=== PATIENT | male | born 1950 | race Caucasian/White ===

== ENCOUNTER 2019-10-30 20:02 | Inpatient (IN) ==
[2019-10-30] MEDS ORDERED: Aspirin 325 MG TABLET PO ONE (20:07)
[2019-10-30] MEDS ORDERED: Ipratropium/Albuterol Neb 3 ML IH ONE (20:07)
[2019-10-30] MEDS ORDERED: 0.9 % Sodium Chloride 250 ML IVC ONE (20:08)
[2019-10-30 20:56] LABS: Basophils # 0.1 K/mcL (0.0-0.2); Basophils % 0.7 %; Eosinophils # 0.5 K/mcL (0.0-0.6); Eosinophils % 5.4 %; Hematocrit 39.8 % (37.5-50.1); Hemoglobin 14.5 g/dL (12.9-16.9); Immature Granulocytes % 0.3 % (0-4); Lymphocytes # 0.9 K/mcL (0.6-4.6); Mean Corpuscular HGB Conc 36.4 g/dL (31.6-35.5); Mean Corpuscular Hemoglobin 30.7 pg (28.0-33.3); Mean Corpuscular Volume 84.3 fL (83.0-100.0); Mean Platelet Volume 10.6 fL (9.4-12.4); Monocytes # 0.7 K/mcL (0.0-1.3); Monocytes % 8.1 %; Neutrophils # 6.5 K/mcL (1.6-8.9); Platelet Count 146 K/mcL (140-400); Red Blood Count 4.72 M/mcL (4.19-5.50); Red Cell Distribution Width 13.3 % (11.5-14.5); Segmented Neutrophils % 75.5 %; White Blood Count 8.7 K/mcL (4.3-11.1)
[2019-10-30 21:21] LABS: Alanine Aminotransferase 17 Units/L (7-52); Albumin 3.8 g/dL (3.5-5.7); Albumin/Globulin Ratio 1.2 (1.1-2.2); Alkaline Phosphatase 92 Units/L (34-104); Aspartate Amino Transferase 25 Units/L (13-39); BUN/Creatinine Ratio 19 (6-26); Bilirubin,Total 1.9 mg/dL (0.3-1.0); Blood Urea Nitrogen 10 mg/dL (8-23); Carbon Dioxide 20 mEq/L (23-29); Chloride 97 mEq/L (98-107); Globulin 3.3 g/dL (2.4-3.5); Glucose 118 mg/dL (70-105); Osmolality,Calculated 262 (280-300); Sodium 126 mEq/L (136-145); Total Protein 7.1 g/dL (6.4-8.9); Troponin I < 0.03 ng/mL (< 0.04); eGFR For African Americans > 60 (> 60); eGFR For Non-African Americans > 60 (> 60)
[2019-10-31] MEDS ORDERED: *HR* HYDROcodone/Acet 5/325 mg TABLET PO ONE (00:37)
[2019-10-31] MEDS ORDERED: Dextrose Gel 15 GM/37.5 ML TUBE PO PRN ×2 (02:57)
[2019-10-31] MEDS ORDERED: *HR* Dextrose 50 % in Water (Syg) 50 ML SYRINGE IVP PRN (02:57)
[2019-10-31] MEDS ORDERED: D5% in Water 1,000 ML IVC PRN (02:57)
[2019-10-31] MEDS ORDERED: 0.9 % Sodium Chloride 1,000 ML IVC SCH (04:00)
[2019-10-31] MEDS ORDERED: Ipratropium/Albuterol Neb 3 ML IH SCH ×2 (05:00→08:00)
[2019-10-31] MEDS ORDERED: MethylPREDNISolone 40 MG/ML VIAL IVP SCH ×2 (06:00→07:30)
[2019-10-31] MEDS ORDERED: *HR* Heparin 5,000 UNIT/ML VIAL SQ SCH (06:00)
[2019-10-31 07:51] LABS: Basophils # 0.1 K/mcL (0.0-0.2); Basophils % 0.7 %; Eosinophils # 0.5 K/mcL (0.0-0.6); Eosinophils % 6.5 %; Hematocrit 37.4 % (37.5-50.1); Hemoglobin 13.5 g/dL (12.9-16.9); Immature Granulocytes % 0.4 % (0-4); Lymphocytes % 13.7 %; Mean Corpuscular HGB Conc 36.1 g/dL (31.6-35.5); Mean Corpuscular Volume 85.8 fL (83.0-100.0); Monocytes # 0.6 K/mcL (0.0-1.3); Monocytes % 7.9 %; Neutrophils # 4.9 K/mcL (1.6-8.9); Platelet Count 129 K/mcL (140-400); Red Blood Count 4.36 M/mcL (4.19-5.50); Red Cell Distribution Width 13.6 % (11.5-14.5); Segmented Neutrophils % 70.8 %; White Blood Count 6.9 K/mcL (4.3-11.1)
[2019-10-31 08:11] LABS: Alanine Aminotransferase 14 Units/L (7-52); Albumin 3.6 g/dL (3.5-5.7); Albumin/Globulin Ratio 1.2 (1.1-2.2); Alkaline Phosphatase 91 Units/L (34-104); Aspartate Amino Transferase 21 Units/L (13-39); BUN/Creatinine Ratio 17 (6-26); Bilirubin,Total 1.6 mg/dL (0.3-1.0); Blood Urea Nitrogen 11 mg/dL (8-23); Calcium 8.8 mg/dL (8.6-10.3); Carbon Dioxide 25 mEq/L (23-29); Chloride 96 mEq/L (98-107); Globulin 3.1 g/dL (2.4-3.5); Glucose 113 mg/dL (70-105); Osmolality,Calculated 266 (280-300); Potassium 3.9 mEq/L (3.5-5.1); Sodium 128 mEq/L (136-145); Total Protein 6.7 g/dL (6.4-8.9); eGFR For African Americans > 60 (> 60); eGFR For Non-African Americans > 60 (> 60)
[2019-10-31] MEDS ORDERED: Azithromycin 500 MG in 0.9 % Sodium Chloride 250 ML IVPB SCH (09:00)
[2019-10-31] MEDS ORDERED: Ondansetron 4 MG/2 ML VIAL IVP PRN (09:26)
[2019-10-31] MEDS: Insulin LISPRO 300 UNITS/3 ML VIAL SQ SCH ×3 (09:57→18:07)
[2019-10-31 12:07] LABS: Total Protein,Pleural Fluid 4.7 g/dL
[2019-10-31 12:43] LABS: INR 1.3
[2019-11-01 04:10] LABS: Basophils % 0.5 %; Eosinophils # 0.2 K/mcL (0.0-0.6); Eosinophils % 2.6 %; Hematocrit 37.1 % (37.5-50.1); Hemoglobin 13.3 g/dL (12.9-16.9); Immature Granulocytes % 0.4 % (0-4); Lymphocytes # 0.6 K/mcL (0.6-4.6); Lymphocytes % 8.6 %; Mean Corpuscular HGB Conc 35.8 g/dL (31.6-35.5); Mean Corpuscular Hemoglobin 30.9 pg (28.0-33.3); Mean Corpuscular Volume 86.3 fL (83.0-100.0); Monocytes # 0.7 K/mcL (0.0-1.3); Monocytes % 9.9 %; Neutrophils # 5.7 K/mcL (1.6-8.9); Platelet Count 127 K/mcL (140-400); Red Cell Distribution Width 13.6 % (11.5-14.5); White Blood Count 7.3 K/mcL (4.3-11.1)
[2019-11-01 04:27] LABS: BUN/Creatinine Ratio 18 (6-26); Blood Urea Nitrogen 12 mg/dL (8-23); Calcium 8.4 mg/dL (8.6-10.3); Carbon Dioxide 25 mEq/L (23-29); Chloride 103 mEq/L (98-107); Glucose 104 mg/dL (70-105); Osmolality,Calculated 274 (280-300); Potassium 4.1 mEq/L (3.5-5.1); Sodium 132 mEq/L (136-145); eGFR For African Americans > 60 (> 60); eGFR For Non-African Americans > 60 (> 60)
[2019-11-01] MEDS: Insulin LISPRO 300 UNITS/3 ML VIAL SQ SCH ×3 (08:39→16:58)
[2019-11-01 10:06] LABS: Lactate Dehydrogenase 186 Units/L (140-271)
[2019-11-01] MEDS ORDERED: Saline Nasal Spray 44 ML BOTTLE NS PRN (12:54)
[2019-11-01] MEDS: Ipratropium/Albuterol Neb 3 ML IH PRN (20:29)
[2019-11-01] MEDS ORDERED: *HR* HYDROcodone/Acet 5/325 mg TABLET PO ONE (22:21)
[2019-11-02 04:57] LABS: INR 1.3; Prothrombin Time 15.2 Seconds (9.4-12.1)
[2019-11-02] MEDS: Insulin LISPRO 300 UNITS/3 ML VIAL SQ SCH ×3 (08:03→16:54)
[2019-11-02] MEDS ORDERED: Lidocaine -MPF 4% 5 ML AMPUL ONE (08:25)
[2019-11-02] MEDS ORDERED: Ondansetron 4 MG/2 ML VIAL ONE (08:25)
[2019-11-02] MEDS ORDERED: Lidocaine -MPF 2% 2 ML VIAL ONE (08:25)
[2019-11-02] MEDS ORDERED: *HR* Propofol 200 MG/20 ML VIAL IVP ONE (08:26)
[2019-11-02] MEDS: Ipratropium/Albuterol Neb 3 ML IH PRN (08:42)
[2019-11-02] MEDS ORDERED: *HR* PHENYLEPHRINE 1,000 MCG/10 ML SYRINGE IVP ONE (08:52)
[2019-11-02] MEDS ORDERED: *HR* Succinylcholine 200 MG/10 ML VIAL IVP ONE (08:53)
[2019-11-02 10:48] LABS: Hematocrit 37.4 % (37.5-50.1); Hemoglobin 13.5 g/dL (12.9-16.9); Mean Corpuscular HGB Conc 36.1 g/dL (31.6-35.5); Mean Corpuscular Hemoglobin 31.5 pg (28.0-33.3); Mean Corpuscular Volume 87.4 fL (83.0-100.0); Mean Platelet Volume 10.6 fL (9.4-12.4); Platelet Count 142 K/mcL (140-400); Red Blood Count 4.28 M/mcL (4.19-5.50); Red Cell Distribution Width 13.9 % (11.5-14.5); White Blood Count 6.2 K/mcL (4.3-11.1)
[2019-11-02 11:27] LABS: Albumin 3.3 g/dL (3.5-5.7); Albumin/Globulin Ratio 1.2 (1.1-2.2); Globulin 2.8 g/dL (2.4-3.5); Total Protein 6.1 g/dL (6.4-8.9)
[2019-11-02] MEDS ORDERED: *HR* HYDROcodone/Acet 5/325 mg TABLET PO ONE (18:49)
[2019-11-02 18:54] LABS: Appearance of Body Fluid Hazy (Clear); Volume of Body Fluid 10 mL
[2019-11-02 19:14] LABS: Appearance of Body Fluid Hazy (Clear)
[2019-11-02 19:15] LABS: Volume of Body Fluid 12 mL
[2019-11-02 19:19] LABS: Appearance of Body Fluid Cloudy (Clear); Volume of Body Fluid 15 mL
[2019-11-03] MEDS: Ipratropium/Albuterol Neb 3 ML IH PRN ×2 (04:09→14:22)
[2019-11-03 08:08] VITALS: BP 127/74
[2019-11-03] MEDS: Insulin LISPRO 300 UNITS/3 ML VIAL SQ SCH ×2 (08:59→11:21)
[2019-11-03] MEDS ORDERED: *HR* HYDROcodone/Acet 5/325 mg TABLET PO PRN (10:32)
== END 2019-11-03 16:50 | disposition home or self-care (01) | DRG 193 ==
LOC: 3ANU 20:02 → EMEROOARM 20:02 → 3ANU 10-31 01:00 → SUATTDRO 10-31 04:31
PROVIDERS: ADMIT Internal Medicine; ATTEND Internal Medicine
PROC: ENDOBRF (2019-11-02 17:30)

== ENCOUNTER 2019-11-10 18:00 | Inpatient (IN) ==
[2019-11-10 18:53] LABS: INR 1.3; Prothrombin Time 14.2 Seconds (9.4-12.1)
[2019-11-10 18:56] LABS: Basophils # 0.1 K/mcL (0.0-0.2); Basophils % 0.6 %; Eosinophils # 0.5 K/mcL (0.0-0.6); Eosinophils % 5.3 %; Hemoglobin 13.7 g/dL (12.9-16.9); Immature Granulocytes % 0.5 % (0-4); Lymphocytes # 1.1 K/mcL (0.6-4.6); Lymphocytes % 10.7 %; Mean Corpuscular HGB Conc 36.1 g/dL (31.6-35.5); Mean Corpuscular Hemoglobin 31.3 pg (28.0-33.3); Mean Corpuscular Volume 86.8 fL (83.0-100.0); Mean Platelet Volume 10.7 fL (9.4-12.4); Monocytes % 9.8 %; Neutrophils # 7.2 K/mcL (1.6-8.9); Platelet Count 167 K/mcL (140-400); Red Blood Count 4.38 M/mcL (4.19-5.50); Red Cell Distribution Width 14.4 % (11.5-14.5); Segmented Neutrophils % 73.1 %; White Blood Count 9.9 K/mcL (4.3-11.1)
[2019-11-10 19:11] LABS: Alanine Aminotransferase 20 Units/L (7-52); Albumin 3.9 g/dL (3.5-5.7); Albumin/Globulin Ratio 1.1 (1.1-2.2); Alkaline Phosphatase 83 Units/L (34-104); Aspartate Amino Transferase 25 Units/L (13-39); BUN/Creatinine Ratio 20 (6-26); Bilirubin,Direct 0.3 mg/dL (0.0-0.2); Bilirubin,Indirect 1.2 mg/dL (0.0-1.0); Bilirubin,Total 1.5 mg/dL (0.3-1.0); Blood Urea Nitrogen 13 mg/dL (8-23); Calcium 9.7 mg/dL (8.6-10.3); Carbon Dioxide 25 mEq/L (23-29); Chloride 98 mEq/L (98-107); Globulin 3.4 g/dL (2.4-3.5); Glucose 120 mg/dL (70-105); Osmolality,Calculated 265 (280-300); Potassium 4.3 mEq/L (3.5-5.1); Sodium 127 mEq/L (136-145); Total Protein 7.3 g/dL (6.4-8.9); Troponin I < 0.03 ng/mL (< 0.04); eGFR For African Americans > 60 (> 60); eGFR For Non-African Americans > 60 (> 60)
[2019-11-10] MEDS ORDERED: Piperacillin/Tazobactam 3.375 GM in 0.9 % Sodium Chloride Mini Bag 100 ML IVPB ONE (19:29)
[2019-11-10] MEDS ORDERED: Isovue-370 500 ML BOTTLE IVP ONE (19:42)
[2019-11-10] MEDS ORDERED: Naloxone 0.4 MG/ML INJ IVP PRN (21:35)
[2019-11-10] MEDS ORDERED: *HR* Dextrose 50 % in Water (Syg) 50 ML SYRINGE IVP PRN (21:41)
[2019-11-10] MEDS ORDERED: D5% in Water 1,000 ML IVC PRN (21:41)
[2019-11-10] MEDS ORDERED: Dextrose Gel 15 GM/37.5 ML TUBE PO PRN ×2 (21:41)
[2019-11-11] MEDS ORDERED: Ondansetron 4 MG/2 ML VIAL IVP ONE (00:46)
[2019-11-11 03:26] LABS: Basophils # 0.1 K/mcL (0.0-0.2); Basophils % 0.5 %; Eosinophils # 0.3 K/mcL (0.0-0.6); Eosinophils % 3.6 %; Hematocrit 35.8 % (37.5-50.1); Hemoglobin 12.7 g/dL (12.9-16.9); INR 1.3; Immature Granulocytes % 0.5 % (0-4); Lymphocytes % 10.4 %; Mean Corpuscular HGB Conc 35.5 g/dL (31.6-35.5); Mean Corpuscular Hemoglobin 31.7 pg (28.0-33.3); Mean Corpuscular Volume 89.3 fL (83.0-100.0); Mean Platelet Volume 10.8 fL (9.4-12.4); Monocytes # 0.8 K/mcL (0.0-1.3); Monocytes % 8.1 %; Neutrophils # 7.3 K/mcL (1.6-8.9); Platelet Count 142 K/mcL (140-400); Red Blood Count 4.01 M/mcL (4.19-5.50); Red Cell Distribution Width 14.3 % (11.5-14.5); Segmented Neutrophils % 76.9 %; White Blood Count 9.5 K/mcL (4.3-11.1)
[2019-11-11 03:29] LABS: Activated Partial Thrombo Time 29.2 Seconds (26.0-36.0)
[2019-11-11 03:42] LABS: Alanine Aminotransferase 19 Units/L (7-52); Albumin 3.6 g/dL (3.5-5.7); Albumin/Globulin Ratio 1.2 (1.1-2.2); Alkaline Phosphatase 75 Units/L (34-104); Aspartate Amino Transferase 24 Units/L (13-39); BUN/Creatinine Ratio 21 (6-26); Blood Urea Nitrogen 12 mg/dL (8-23); Calcium 9.1 mg/dL (8.6-10.3); Carbon Dioxide 24 mEq/L (23-29); Chloride 97 mEq/L (98-107); Glucose 128 mg/dL (70-105); Osmolality,Calculated 271 (280-300); Potassium 4.1 mEq/L (3.5-5.1); Sodium 130 mEq/L (136-145); Total Protein 6.6 g/dL (6.4-8.9); eGFR For African Americans > 60 (> 60); eGFR For Non-African Americans > 60 (> 60)
[2019-11-11] MEDS: Insulin LISPRO 300 UNITS/3 ML VIAL SQ SCH ×5 (03:48→23:27)
[2019-11-11] MEDS ORDERED: Ipratropium/Albuterol Neb 3 ML IH PRN ×2 (06:18→21:24)
[2019-11-11] MEDS: Ondansetron 4 MG/2 ML VIAL IVP PRN ×2 (09:28→15:57)
[2019-11-11] MEDS ORDERED: Ondansetron 4 MG/2 ML VIAL IVP SCH (12:00)
[2019-11-11] MEDS ORDERED: *HR* Promethazine 25 MG/ML VIAL IVP PRN ×2 (13:05→21:24)
[2019-11-11 17:06] LABS: ABG Base Excess 1 mEq/L (-2 to 3); ABG HCO3 27 mEq/L (21-27); ABG Oxygen Saturation 96 % (95-98); ABG PCO2 49 mmHg (35-45); ABG PH 7.36 pH Units (7.32-7.45); ABG PO2 87 mmHg (85-104); ABG TCO2 29 mEq/L (20-26)
[2019-11-11] MEDS ORDERED: Morphine Sulfate Oral CONC 10 MG/0.5 ML ORAL.SYG SL PRN (17:06)
[2019-11-11] MEDS ORDERED: D5% in Water 1,000 ML IVC PRN (21:24)
[2019-11-11] MEDS ORDERED: Naloxone 0.4 MG/ML INJ IVP PRN (21:24)
[2019-11-11] MEDS ORDERED: Ondansetron 4 MG/2 ML VIAL IVP PRN (21:24)
[2019-11-11] MEDS ORDERED: Dextrose Gel 15 GM/37.5 ML TUBE PO PRN ×2 (21:24)
[2019-11-11] MEDS ORDERED: *HR* Dextrose 50 % in Water (Syg) 50 ML SYRINGE IVP PRN (21:24)
[2019-11-12] MEDS: Morphine Sulfate Oral CONC 10 MG/0.5 ML ORAL.SYG SL PRN ×3 (04:07→14:32)
[2019-11-12 04:59] LABS: Mean Corpuscular HGB Conc 34.3 g/dL (31.6-35.5); Mean Corpuscular Hemoglobin 31.1 pg (28.0-33.3); Mean Corpuscular Volume 90.7 fL (83.0-100.0); Mean Platelet Volume 11.1 fL (9.4-12.4); Platelet Count 117 K/mcL (140-400); Red Blood Count 3.86 M/mcL (4.19-5.50); Red Cell Distribution Width 14.8 % (11.5-14.5); White Blood Count 9.5 K/mcL (4.3-11.1)
[2019-11-12 05:20] LABS: BUN/Creatinine Ratio 27 (6-26); Blood Urea Nitrogen 19 mg/dL (8-23); Calcium 9.5 mg/dL (8.6-10.3); Carbon Dioxide 29 mEq/L (23-29); Chloride 97 mEq/L (98-107); Glucose 104 mg/dL (70-105); Magnesium 1.6 mg/dL (1.6-2.6); Osmolality,Calculated 275 (280-300); Potassium 4.2 mEq/L (3.5-5.1); Sodium 131 mEq/L (136-145); eGFR For African Americans > 60 (> 60); eGFR For Non-African Americans > 60 (> 60)
[2019-11-12] MEDS: Insulin LISPRO 300 UNITS/3 ML VIAL SQ SCH ×3 (05:52→17:44)
[2019-11-12] MEDS ORDERED: *HR* Propofol 200 MG/20 ML VIAL IVP ONE (13:25)
[2019-11-12] MEDS ORDERED: *HR* Midazolam HCl 2 MG/2 ML VIAL ONE (13:25)
[2019-11-12] MEDS ORDERED: Lidocaine -MPF 2% 2 ML VIAL ONE (13:26)
[2019-11-12] MEDS ORDERED: Ondansetron 4 MG/2 ML VIAL ONE (13:26)
[2019-11-12] MEDS ORDERED: *HR* Rocuronium Bromide 50 MG/5 ML VIAL ONE (13:27)
[2019-11-12] MEDS ORDERED: *HR* FentaNYL (PF) 100 MCG/2 ML VIAL ONE (13:29)
[2019-11-12] MEDS ORDERED: *HR* Succinylcholine 200 MG/10 ML VIAL IVP ONE (13:30)
[2019-11-12] MEDS ORDERED: Lidocaine HCL 4 ML Topical Solution (Laryng-O-Jet Kit Sterile Pak) TP ONE (13:39)
[2019-11-12] MEDS ORDERED: *HR* Etomidate 40 MG/20 ML VIAL IVP ONE (14:22)
[2019-11-12] MEDS ORDERED: EPHEDrine 50 MG/ML VIAL ONE (14:26)
[2019-11-12] MEDS ORDERED: *HR* Vasopressin 20 UNIT/ML VIAL ONE (14:35)
[2019-11-12] MEDS ORDERED: Albumin Human 5% 0 GM/0 ML VIAL ONE (14:44)
[2019-11-12] MEDS ORDERED: CeFAZolin Syr 2,000MG/20 ML 2,000 MG/20 ML SYRINGE IVPB ONE (15:06)
[2019-11-12] MEDS ORDERED: *HR* Phenylephrine 10 MG/ML VIAL ONE (15:22)
[2019-11-12] MEDS ORDERED: Dextrose Gel 15 GM/37.5 ML TUBE PO PRN ×2 (16:33)
[2019-11-12] MEDS ORDERED: *HR* Dextrose 50 % in Water (Syg) 50 ML SYRINGE IVP PRN (16:33)
[2019-11-12] MEDS ORDERED: Ipratropium/Albuterol Neb 3 ML IH PRN (16:33)
[2019-11-12] MEDS ORDERED: Ondansetron 4 MG/2 ML VIAL IVP PRN (16:33)
[2019-11-12] MEDS ORDERED: *HR* Promethazine 25 MG/ML VIAL IVP PRN (16:33)
[2019-11-12] MEDS ORDERED: D5% in Water 1,000 ML IVC PRN (16:33)
[2019-11-12] MEDS ORDERED: Naloxone 0.4 MG/ML INJ IVP PRN (16:33)
[2019-11-12] MEDS: *HR* HYDROcodone/Acet 5/325 mg TABLET PO PRN (17:38)
[2019-11-12] MEDS: Albuterol 2.5 MG/3 ML NEBULIZER IH SCH ×2 (20:14→23:15)
[2019-11-12] MEDS: Gabapentin 300 MG CAPSULE PO SCH (20:22)
[2019-11-13] MEDS: Insulin LISPRO 300 UNITS/3 ML VIAL SQ SCH ×4 (00:06→16:49)
[2019-11-13] MEDS: *HR* HYDROcodone/Acet 5/325 mg TABLET PO PRN ×5 (01:15→21:31)
[2019-11-13] MEDS: Albuterol 2.5 MG/3 ML NEBULIZER IH SCH ×6 (03:19→23:51)
[2019-11-13 05:04] LABS: Eosinophils % 0.1 %; Red Cell Distribution Width 14.4 % (11.5-14.5)
[2019-11-13 05:06] LABS: Basophils % 0.1 %; Hemoglobin 10.9 g/dL (12.9-16.9); Immature Granulocytes % 0.3 % (0-4); Immature Platelets 3.9 % (1.1-6.1); Lymphocytes # 0.5 K/mcL (0.6-4.6); Lymphocytes % 6.2 %; Mean Corpuscular HGB Conc 35.2 g/dL (31.6-35.5); Mean Corpuscular Hemoglobin 31.5 pg (28.0-33.3); Mean Corpuscular Volume 89.6 fL (83.0-100.0); Mean Platelet Volume 10.6 fL (9.4-12.4); Monocytes # 0.5 K/mcL (0.0-1.3); Neutrophils # 6.4 K/mcL (1.6-8.9); Red Blood Count 3.46 M/mcL (4.19-5.50); Segmented Neutrophils % 86.3 %; White Blood Count 7.4 K/mcL (4.3-11.1)
[2019-11-13 05:10] LABS: VBG Ionized Calcium 1.16 mmol/L (1.15-1.35)
[2019-11-13 05:20] LABS: BUN/Creatinine Ratio 27 (6-26); Blood Urea Nitrogen 17 mg/dL (8-23); Calcium 8.7 mg/dL (8.6-10.3); Carbon Dioxide 25 mEq/L (23-29); Chloride 99 mEq/L (98-107); Glucose 112 mg/dL (70-105); Magnesium 1.5 mg/dL (1.6-2.6); Osmolality,Calculated 276 (280-300); Phosphorous 4.3 mg/dL (2.7-4.5); Potassium 4.5 mEq/L (3.5-5.1); Sodium 132 mEq/L (136-145); eGFR For African Americans > 60 (> 60); eGFR For Non-African Americans > 60 (> 60)
[2019-11-13 06:18] LABS: Platelet Count 87 K/mcL (140-400); Platelet Estimate Slight Decrease (Normal)
[2019-11-13] MEDS: Gabapentin 300 MG CAPSULE PO SCH ×3 (07:57→19:51)
[2019-11-13] MEDS ORDERED: Isovue-370 500 ML BOTTLE IVP ONE (08:32)
[2019-11-13] MEDS ORDERED: *HR* Dextrose 50 % in Water (Syg) 50 ML SYRINGE IVP PRN (10:26)
[2019-11-13] MEDS ORDERED: Naloxone 0.4 MG/ML INJ IVP PRN (10:26)
[2019-11-13] MEDS ORDERED: *HR* Promethazine 25 MG/ML VIAL IVP PRN (10:26)
[2019-11-13] MEDS ORDERED: Ipratropium/Albuterol Neb 3 ML IH PRN (10:26)
[2019-11-13] MEDS ORDERED: Dextrose Gel 15 GM/37.5 ML TUBE PO PRN ×2 (10:26)
[2019-11-13] MEDS ORDERED: D5% in Water 1,000 ML IVC PRN (10:26)
[2019-11-13] MEDS: Ondansetron 4 MG/2 ML VIAL IVP PRN (11:32)
[2019-11-14] MEDS: Insulin LISPRO 300 UNITS/3 ML VIAL SQ SCH ×4 (00:34→16:43)
[2019-11-14] MEDS: Albuterol 2.5 MG/3 ML NEBULIZER IH SCH ×6 (04:10→23:13)
[2019-11-14] MEDS: *HR* HYDROcodone/Acet 5/325 mg TABLET PO PRN ×4 (04:19→20:57)
[2019-11-14] MEDS: Gabapentin 300 MG CAPSULE PO SCH ×3 (08:02→20:49)
[2019-11-14] MEDS ORDERED: Gadolinium Contrast Agent (WT Based) IV PRN (10:03)
[2019-11-15] MEDS: Insulin LISPRO 300 UNITS/3 ML VIAL SQ SCH ×5 (00:43→20:33)
[2019-11-15] MEDS: *HR* HYDROcodone/Acet 5/325 mg TABLET PO PRN ×5 (00:54→20:38)
[2019-11-15] MEDS: Albuterol 2.5 MG/3 ML NEBULIZER IH SCH ×6 (03:24→23:56)
[2019-11-15 06:00] LABS: Hemoglobin 11.4 g/dL (12.9-16.9); Mean Platelet Volume 11.7 fL (9.4-12.4)
[2019-11-15 06:02] LABS: Hematocrit 32.3 % (37.5-50.1); Immature Platelets 6.9 % (1.1-6.1); Mean Corpuscular HGB Conc 35.3 g/dL (31.6-35.5); Mean Corpuscular Hemoglobin 31.1 pg (28.0-33.3); Red Blood Count 3.67 M/mcL (4.19-5.50); Red Cell Distribution Width 14.5 % (11.5-14.5); White Blood Count 7.2 K/mcL (4.3-11.1)
[2019-11-15 06:21] LABS: % Iron Saturation 16 % (20-55); BUN/Creatinine Ratio 19 (6-26); Blood Urea Nitrogen 10 mg/dL (8-23); Calcium 8.4 mg/dL (8.6-10.3); Carbon Dioxide 27 mEq/L (23-29); Chloride 100 mEq/L (98-107); Glucose 118 mg/dL (70-105); Iron 39 mcg/dL (65-175); Magnesium 1.8 mg/dL (1.6-2.6); Osmolality,Calculated 278 (280-300); Potassium 4.4 mEq/L (3.5-5.1); Sodium 134 mEq/L (136-145); Transferrin 171 mg/dL (203-362); eGFR For African Americans > 60 (> 60); eGFR For Non-African Americans > 60 (> 60)
[2019-11-15] MEDS: Gabapentin 300 MG CAPSULE PO SCH ×3 (08:04→20:39)
[2019-11-15] MEDS ORDERED: Lidocaine -MPF 0.5% 40 ML, Syringe CATH TIP 1 EACH IX ONE (11:45)
[2019-11-15] MEDS ORDERED: Talc (sterile) 4 GM, 0.9 % Sodium Chloride 50 ML, Syringe CATH TIP 1 EACH IX ONE (13:00)
[2019-11-16] MEDS: *HR* HYDROcodone/Acet 5/325 mg TABLET PO PRN ×5 (02:23→20:26)
[2019-11-16] MEDS: Albuterol 2.5 MG/3 ML NEBULIZER IH SCH ×5 (03:37→19:32)
[2019-11-16] MEDS ORDERED: [UNRECOGNIZED DRUG - OTHER] IX ONE (08:00)
[2019-11-16] MEDS ORDERED: TALC IX ONE (08:00)
[2019-11-16] MEDS ORDERED: LOK IX ONE (08:00)
[2019-11-16] MEDS ORDERED: SODIUM CHLORIDE IX ONE (08:00)
[2019-11-16] MEDS: Insulin LISPRO 300 UNITS/3 ML VIAL SQ SCH ×4 (08:04→20:19)
[2019-11-16] MEDS: Gabapentin 300 MG CAPSULE PO SCH ×3 (08:05→20:27)
[2019-11-17] MEDS: Albuterol 2.5 MG/3 ML NEBULIZER IH SCH ×7 (00:01→23:45)
[2019-11-17] MEDS: *HR* HYDROcodone/Acet 5/325 mg TABLET PO PRN ×4 (02:51→18:26)
[2019-11-17 03:01] LABS: Basophils # 0.1 K/mcL (0.0-0.2); Basophils % 0.8 %; Eosinophils # 0.3 K/mcL (0.0-0.6); Eosinophils % 5.5 %; Hematocrit 34.4 % (37.5-50.1); Hemoglobin 12.3 g/dL (12.9-16.9); Immature Granulocytes % 0.3 % (0-4); Lymphocytes # 0.7 K/mcL (0.6-4.6); Lymphocytes % 11.9 %; Mean Corpuscular HGB Conc 35.8 g/dL (31.6-35.5); Mean Corpuscular Hemoglobin 31.3 pg (28.0-33.3); Mean Corpuscular Volume 87.5 fL (83.0-100.0); Mean Platelet Volume 11.2 fL (9.4-12.4); Monocytes # 0.6 K/mcL (0.0-1.3); Monocytes % 10.3 %; Neutrophils # 4.4 K/mcL (1.6-8.9); Platelet Count 112 K/mcL (140-400); Red Blood Count 3.93 M/mcL (4.19-5.50); Segmented Neutrophils % 71.2 %; White Blood Count 6.2 K/mcL (4.3-11.1)
[2019-11-17 03:08] LABS: BUN/Creatinine Ratio 28 (6-26); Blood Urea Nitrogen 14 mg/dL (8-23); Calcium 8.8 mg/dL (8.6-10.3); Carbon Dioxide 26 mEq/L (23-29); Chloride 101 mEq/L (98-107); Glucose 113 mg/dL (70-105); Osmolality,Calculated 275 (280-300); Potassium 4.7 mEq/L (3.5-5.1); Sodium 132 mEq/L (136-145); eGFR For African Americans > 60 (> 60); eGFR For Non-African Americans > 60 (> 60)
[2019-11-17] MEDS: Gabapentin 300 MG CAPSULE PO SCH ×3 (07:33→20:48)
[2019-11-17] MEDS: Insulin LISPRO 300 UNITS/3 ML VIAL SQ SCH ×4 (08:41→20:49)
[2019-11-17] MEDS: Ondansetron 4 MG/2 ML VIAL IVP PRN (10:46)
[2019-11-17] MEDS ORDERED: Preparation H Ointment 30 GM TUBE RC PRN (21:36)
[2019-11-17] MEDS ORDERED: Pramoxine 15 GM FOAM Package TP PRN (23:16)
[2019-11-18] MEDS: *HR* HYDROcodone/Acet 5/325 mg TABLET PO PRN ×5 (02:18→20:20)
[2019-11-18] MEDS: Albuterol 2.5 MG/3 ML NEBULIZER IH SCH ×5 (03:51→20:10)
[2019-11-18] MEDS: Gabapentin 300 MG CAPSULE PO SCH ×3 (07:41→20:20)
[2019-11-18] MEDS: Insulin LISPRO 300 UNITS/3 ML VIAL SQ SCH ×4 (07:44→20:20)
[2019-11-18 11:35] LABS: Basophils % 0.6 %; Eosinophils # 0.4 K/mcL (0.0-0.6); Eosinophils % 5.1 %; Hematocrit 36.7 % (37.5-50.1); Hemoglobin 12.2 g/dL (12.9-16.9); Immature Granulocytes % 0.4 % (0-4); Lymphocytes # 0.7 K/mcL (0.6-4.6); Lymphocytes % 10.9 %; Mean Corpuscular HGB Conc 33.2 g/dL (31.6-35.5); Mean Corpuscular Hemoglobin 30.8 pg (28.0-33.3); Mean Corpuscular Volume 92.7 fL (83.0-100.0); Mean Platelet Volume 10.7 fL (9.4-12.4); Monocytes # 0.6 K/mcL (0.0-1.3); Monocytes % 9.4 %; Platelet Count 137 K/mcL (140-400); Red Blood Count 3.96 M/mcL (4.19-5.50); Red Cell Distribution Width 15.4 % (11.5-14.5); Segmented Neutrophils % 73.6 %; White Blood Count 6.8 K/mcL (4.3-11.1)
[2019-11-18 11:53] LABS: BUN/Creatinine Ratio 27 (6-26); Blood Urea Nitrogen 15 mg/dL (8-23); Calcium 8.7 mg/dL (8.6-10.3); Carbon Dioxide 24 mEq/L (23-29); Chloride 103 mEq/L (98-107); Glucose 138 mg/dL (70-105); Osmolality,Calculated 275 (280-300); Potassium 4.6 mEq/L (3.5-5.1); Sodium 131 mEq/L (136-145); eGFR For African Americans > 60 (> 60); eGFR For Non-African Americans > 60 (> 60)
[2019-11-19] MEDS: Albuterol 2.5 MG/3 ML NEBULIZER IH SCH ×7 (00:27→23:23)
[2019-11-19] MEDS: *HR* HYDROcodone/Acet 5/325 mg TABLET PO PRN ×4 (02:40→16:20)
[2019-11-19 06:34] LABS: Basophils % 0.7 %; Eosinophils # 0.4 K/mcL (0.0-0.6); Hematocrit 35.2 % (37.5-50.1); Hemoglobin 12.3 g/dL (12.9-16.9); Immature Granulocytes % 0.5 % (0-4); Lymphocytes # 0.8 K/mcL (0.6-4.6); Lymphocytes % 12.8 %; Mean Corpuscular HGB Conc 34.9 g/dL (31.6-35.5); Mean Corpuscular Hemoglobin 31.3 pg (28.0-33.3); Mean Corpuscular Volume 89.6 fL (83.0-100.0); Monocytes # 0.6 K/mcL (0.0-1.3); Monocytes % 10.2 %; Neutrophils # 4.1 K/mcL (1.6-8.9); Platelet Count 132 K/mcL (140-400); Red Blood Count 3.93 M/mcL (4.19-5.50); Red Cell Distribution Width 15.5 % (11.5-14.5); Segmented Neutrophils % 68.8 %
[2019-11-19 06:52] LABS: BUN/Creatinine Ratio 27 (6-26); Blood Urea Nitrogen 14 mg/dL (8-23); Carbon Dioxide 26 mEq/L (23-29); Chloride 100 mEq/L (98-107); Glucose 127 mg/dL (70-105); Osmolality,Calculated 278 (280-300); Potassium 4.3 mEq/L (3.5-5.1); Sodium 133 mEq/L (136-145); eGFR For African Americans > 60 (> 60); eGFR For Non-African Americans > 60 (> 60)
[2019-11-19] MEDS: Gabapentin 300 MG CAPSULE PO SCH ×3 (08:00→19:58)
[2019-11-19] MEDS: Insulin LISPRO 300 UNITS/3 ML VIAL SQ SCH ×4 (08:02→19:55)
[2019-11-19] MEDS: *HR* HYDROcodone/Acet 7.5/325 mg TABLET PO PRN (19:58)
[2019-11-20] MEDS: *HR* HYDROcodone/Acet 7.5/325 mg TABLET PO PRN ×4 (01:36→16:33)
[2019-11-20] MEDS: Albuterol 2.5 MG/3 ML NEBULIZER IH SCH ×6 (04:27→23:32)
[2019-11-20] MEDS: Insulin LISPRO 300 UNITS/3 ML VIAL SQ SCH ×4 (08:37→20:41)
[2019-11-20] MEDS: Gabapentin 300 MG CAPSULE PO SCH ×3 (08:38→20:46)
[2019-11-20] MEDS: Ondansetron 4 MG/2 ML VIAL IVP PRN (10:40)
[2019-11-21] MEDS: Albuterol 2.5 MG/3 ML NEBULIZER IH SCH ×6 (04:27→23:07)
[2019-11-21] MEDS: Insulin LISPRO 300 UNITS/3 ML VIAL SQ SCH ×4 (07:58→20:00)
[2019-11-21] MEDS: Gabapentin 300 MG CAPSULE PO SCH ×3 (07:59→19:57)
[2019-11-21] MEDS: *HR* HYDROcodone/Acet 7.5/325 mg TABLET PO PRN ×4 (07:59→19:57)
[2019-11-21] MEDS ORDERED: Prochlorperazine 10 MG/2 ML VIAL IVP PRN (09:55)
[2019-11-22] MEDS: *HR* HYDROcodone/Acet 7.5/325 mg TABLET PO PRN ×5 (02:01→20:11)
[2019-11-22] MEDS: Albuterol 2.5 MG/3 ML NEBULIZER IH SCH ×5 (04:07→20:20)
[2019-11-22 04:58] LABS: Hematocrit 36.2 % (37.5-50.1); Hemoglobin 12.4 g/dL (12.9-16.9); Mean Corpuscular HGB Conc 34.3 g/dL (31.6-35.5); Mean Corpuscular Hemoglobin 31.6 pg (28.0-33.3); Mean Corpuscular Volume 92.1 fL (83.0-100.0); Mean Platelet Volume 10.8 fL (9.4-12.4); Platelet Count 114 K/mcL (140-400); Red Blood Count 3.93 M/mcL (4.19-5.50); Red Cell Distribution Width 15.5 % (11.5-14.5); White Blood Count 5.3 K/mcL (4.3-11.1)
[2019-11-22 05:36] LABS: Alanine Aminotransferase 26 Units/L (7-52); Alkaline Phosphatase 78 Units/L (34-104); Aspartate Amino Transferase 29 Units/L (13-39); BUN/Creatinine Ratio 31 (6-26); Bilirubin,Direct 0.2 mg/dL (0.0-0.2); Bilirubin,Indirect 0.5 mg/dL (0.0-1.0); Bilirubin,Total 0.7 mg/dL (0.3-1.0); Blood Urea Nitrogen 18 mg/dL (8-23); Calcium 8.5 mg/dL (8.6-10.3); Carbon Dioxide 24 mEq/L (23-29); Chloride 102 mEq/L (98-107); Glucose 142 mg/dL (70-105); Magnesium 1.7 mg/dL (1.6-2.6); Osmolality,Calculated 278 (280-300); Potassium 4.2 mEq/L (3.5-5.1); Sodium 132 mEq/L (136-145); eGFR For African Americans > 60 (> 60); eGFR For Non-African Americans > 60 (> 60)
[2019-11-22 05:37] LABS: % Iron Saturation 17 % (20-55); Albumin 2.9 g/dL (3.5-5.7); Albumin/Globulin Ratio 1.1 (1.1-2.2); Globulin 2.6 g/dL (2.4-3.5); Iron 48 mcg/dL (65-175); Total Protein 5.5 g/dL (6.4-8.9); Transferrin 205 mg/dL (203-362)
[2019-11-22] MEDS: Lactulose Oral Soln 20 GM/30 ML UDC PO SCH ×2 (08:16→20:12)
[2019-11-22] MEDS: Gabapentin 300 MG CAPSULE PO SCH ×3 (08:16→20:12)
[2019-11-22] MEDS: Insulin LISPRO 300 UNITS/3 ML VIAL SQ SCH ×4 (08:17→21:43)
[2019-11-23] MEDS: Albuterol 2.5 MG/3 ML NEBULIZER IH SCH ×3 (00:01→07:25)
[2019-11-23] MEDS: *HR* HYDROcodone/Acet 7.5/325 mg TABLET PO PRN ×2 (00:45→04:52)
[2019-11-23 02:33] LABS: Basophils % 0.6 %; Eosinophils # 0.2 K/mcL (0.0-0.6); Eosinophils % 4.4 %; Hematocrit 36.1 % (37.5-50.1); Hemoglobin 12.4 g/dL (12.9-16.9); Immature Granulocytes % 0.2 % (0-4); Lymphocytes # 0.7 K/mcL (0.6-4.6); Lymphocytes % 14.2 %; Mean Corpuscular HGB Conc 34.3 g/dL (31.6-35.5); Mean Corpuscular Hemoglobin 31.8 pg (28.0-33.3); Mean Corpuscular Volume 92.6 fL (83.0-100.0); Mean Platelet Volume 11.6 fL (9.4-12.4); Monocytes # 0.4 K/mcL (0.0-1.3); Neutrophils # 3.4 K/mcL (1.6-8.9); Platelet Count 116 K/mcL (140-400); Red Cell Distribution Width 15.6 % (11.5-14.5); Segmented Neutrophils % 71.6 %; White Blood Count 4.8 K/mcL (4.3-11.1)
[2019-11-23 02:45] LABS: BUN/Creatinine Ratio 24 (6-26); Blood Urea Nitrogen 16 mg/dL (8-23); Calcium 8.4 mg/dL (8.6-10.3); Carbon Dioxide 23 mEq/L (23-29); Chloride 101 mEq/L (98-107); Glucose 178 mg/dL (70-105); Magnesium 1.6 mg/dL (1.6-2.6); Osmolality,Calculated 278 (280-300); Potassium 4.2 mEq/L (3.5-5.1); Sodium 131 mEq/L (136-145); eGFR For African Americans > 60 (> 60); eGFR For Non-African Americans > 60 (> 60)
[2019-11-23] MEDS: Insulin LISPRO 300 UNITS/3 ML VIAL SQ SCH (07:38)
[2019-11-23] MEDS: Lactulose Oral Soln 20 GM/30 ML UDC PO SCH (07:39)
[2019-11-23] MEDS: Gabapentin 300 MG CAPSULE PO SCH (07:39)
[2019-11-23] MEDS ORDERED: Lidocaine -MPF 2% 2 ML VIAL ONE (07:52)
[2019-11-23] MEDS ORDERED: Propofol 500 MG/50 ML INFUS..BTL ONE (07:53)
[2019-11-23] MEDS ORDERED: *HR* Propofol 200 MG/20 ML VIAL IVP ONE (07:53)
[2019-11-23] MEDS ORDERED: ceFAZolin 2,000 MG in Water for inj. (sterile) 20 ML IVP ONE (08:00)
[2019-11-23] MEDS ORDERED: Lidocaine 1% 20 ML MDV ONE (08:03)
[2019-11-23] MEDS ORDERED: *HR* OxyCODONE Immed Rel 5 MG TABLET PO PRN ×2 (08:34→09:13)
[2019-11-23] MEDS ORDERED: Ondansetron 4 MG/2 ML VIAL IVP ONE (08:34)
[2019-11-23] MEDS ORDERED: D5% in Water 1,000 ML IVC PRN (09:13)
[2019-11-23] MEDS ORDERED: Pramoxine 15 GM FOAM Package TP PRN (09:13)
[2019-11-23] MEDS ORDERED: Ondansetron 4 MG/2 ML VIAL IVP PRN (09:13)
[2019-11-23] MEDS ORDERED: Ipratropium/Albuterol Neb 3 ML IH PRN (09:13)
[2019-11-23] MEDS ORDERED: Naloxone 0.4 MG/ML INJ IVP PRN (09:13)
[2019-11-23] MEDS ORDERED: Prochlorperazine 10 MG/2 ML VIAL IVP PRN (09:13)
[2019-11-23] MEDS ORDERED: *HR* Dextrose 50 % in Water (Syg) 50 ML SYRINGE IVP PRN (09:13)
[2019-11-23] MEDS ORDERED: *HR* HYDROcodone/Acet 7.5/325 mg TABLET PO PRN (09:13)
[2019-11-23] MEDS ORDERED: Dextrose Gel 15 GM/37.5 ML TUBE PO PRN ×2 (09:13)
[2019-11-23 11:19] VITALS: BP 113/69
[2019-11-23] MEDS ORDERED: Insulin LISPRO 300 UNITS/3 ML VIAL SQ SCH ×2 (11:30→21:00)
[2019-11-23] MEDS ORDERED: Albuterol 2.5 MG/3 ML NEBULIZER IH SCH (12:00)
[2019-11-23] MEDS ORDERED: Gabapentin 300 MG CAPSULE PO SCH (15:00)
[2019-11-23] MEDS ORDERED: Lactulose Oral Soln 20 GM/30 ML UDC PO SCH (21:00)
== END 2019-11-23 13:30 | disposition home health service (06) | DRG 166 ==
LOC: EMEROOARM 18:00 → 3BNU 18:00 → SUATTDRO 21:35 → 3BNU 21:59 → ICNU 11-11 21:20 → 2NNU 11-13 10:06
PROVIDERS: ADMIT Internal Medicine; ATTEND Pharmacist

== ENCOUNTER 2019-12-30 15:05 | Inpatient (IN) ==
[2019-12-30] MEDS ORDERED: 0.9 % Sodium Chloride 1,000 ML IVC ONE ×3 (15:12→19:10)
[2019-12-30 16:01] LABS: Basophils % 0.6 %; Eosinophils % 1.1 %; Hemoglobin 8.7 g/dL (12.9-16.9); Red Cell Distribution Width 13.5 % (11.5-14.5)
[2019-12-30 16:03] LABS: Hematocrit 26.5 % (37.5-50.1); Lymphocytes # 0.2 K/mcL (0.6-4.6); Lymphocytes % 12.6 %; Mean Corpuscular HGB Conc 32.8 g/dL (31.6-35.5); Mean Corpuscular Hemoglobin 30.1 pg (28.0-33.3); Mean Corpuscular Volume 91.7 fL (83.0-100.0); Mean Platelet Volume 11.9 fL (9.4-12.4); Monocytes # 0.1 K/mcL (0.0-1.3); Monocytes % 5.7 %; Neutrophils # 1.3 K/mcL (1.6-8.9); Red Blood Count 2.89 M/mcL (4.19-5.50); White Blood Count 1.7 K/mcL (4.3-11.1)
[2019-12-30 16:04] LABS: Bilirubin,Urine Small (Negative); Blood,Urine Negative (Negative); Clarity,Urine Cloudy (Clear); Color,Urine Dark Yellow (Yellow); Glucose,Urine (UA) Normal (Normal); Ketones,Urine Negative (Negative); Leukocyte Esterase,Urine Negative (Negative); Nitrite,Urine Negative (Negative); PH,Urine 5.5 pH Units (5.0-8.0); Protein,Urine Trace mg/dL (Neg-Trace); Specific Gravity,Urine 1.024 (1.010-1.025); Urobilinogen,Urine Normal (Normal)
[2019-12-30 16:08] LABS: Bacteria,Urine None Seen per hpf (None-Few); Hyaline Casts,Urine None Seen per lpf (None-Few); RBC,Urine 0-3 per hpf (0-3); Squamous Epithelial Cell,Urine Many per lpf (None-Few); WBC,Urine 0-3 per hpf (0-3)
[2019-12-30 16:16] LABS: Platelet Count 24 K/mcL (140-400)
[2019-12-30 16:18] LABS: Activated Partial Thrombo Time 31.5 Seconds (26.0-36.0); INR 1.6; Prothrombin Time 18.1 Seconds (9.4-12.1)
[2019-12-30 16:21] LABS: Alanine Aminotransferase 14 Units/L (7-52); Albumin 2.2 g/dL (3.5-5.7); Albumin/Globulin Ratio 0.9 (1.1-2.2); Alkaline Phosphatase 70 Units/L (34-104); Aspartate Amino Transferase 16 Units/L (13-39); BUN/Creatinine Ratio 41 (6-26); Bilirubin,Direct 0.6 mg/dL (0.0-0.2); Bilirubin,Total 1.6 mg/dL (0.3-1.0); Blood Urea Nitrogen 37 mg/dL (8-23); Calcium 8.3 mg/dL (8.6-10.3); Carbon Dioxide 24 mEq/L (23-29); Chloride 103 mEq/L (98-107); Globulin 2.5 g/dL (2.4-3.5); Glucose 124 mg/dL (70-105); Magnesium 1.8 mg/dL (1.6-2.6); Osmolality,Calculated 288 (280-300); Phosphorous 3.9 mg/dL (2.7-4.5); Potassium 4.6 mEq/L (3.5-5.1); Sodium 134 mEq/L (136-145); Total Protein 4.7 g/dL (6.4-8.9); eGFR For African Americans > 60 (> 60); eGFR For Non-African Americans > 60 (> 60)
[2019-12-30 16:22] LABS: Troponin I < 0.03 ng/mL (< 0.04)
[2019-12-30] MEDS ORDERED: *HR* HYDROmorphone (PF) 1 MG/ML SYRINGE IVP ONE (16:34)
[2019-12-30 16:35] LABS: VBG HCO3 24 mEq/L (21-27); VBG PCO2 43 mmHg (41-51); VBG PH 7.35 pH Units (7.32-7.42); VBG PO2 45 mmHg (25-50)
[2019-12-30] MEDS ORDERED: Piperacillin/Tazobactam 3.375 GM in 0.9 % Sodium Chloride Mini Bag 100 ML IVPB ONE (17:06)
[2019-12-30] MEDS ORDERED: Piperacillin/Tazobactam 3.375 GM in Water for inj. (sterile) 20 ML IVP ONE (17:27)
[2019-12-30] MEDS ORDERED: Naloxone 0.4 MG/ML INJ IVP PRN (21:45)
[2019-12-30] MEDS ORDERED: *HR* Dextrose 50 % in Water (Syg) 50 ML SYRINGE IVP PRN (21:50)
[2019-12-30] MEDS ORDERED: Dextrose Gel 15 GM/37.5 ML TUBE PO PRN ×2 (21:50)
[2019-12-30] MEDS ORDERED: D5% in Water 1,000 ML IVC PRN (21:50)
[2019-12-30] MEDS: Norepinephrine 4 MG in 0.9 % Sodium Chloride 250 ML IVC SCH (22:34)
[2019-12-30] MEDS ORDERED: Morphine Sulfate 2 MG/ML SYRINGE IVP ONE (23:44)
[2019-12-31] MEDS: Insulin LISPRO 300 UNITS/3 ML VIAL SQ SCH ×4 (00:01→18:23)
[2019-12-31] MEDS: Piperacillin/Tazobactam 3.375 GM in 0.9 % Sodium Chloride Mini Bag 100 ML IVPB SCH ×3 (00:10→16:23)
[2019-12-31] MEDS: Ketorolac 15 MG/ML VIAL IVP PRN ×3 (00:19→18:32)
[2019-12-31] MEDS ORDERED: 0.9 % Sodium Chloride 500 ML IVC ONE (01:29)
[2019-12-31] MEDS: Norepinephrine 4 MG in 0.9 % Sodium Chloride 250 ML IVC SCH ×3 (04:21→20:16)
[2019-12-31 05:07] LABS: Basophils % 0.8 %
[2019-12-31 05:09] LABS: Eosinophils # 0.1 K/mcL (0.0-0.6); Eosinophils % 1.6 %; Hematocrit 30.9 % (37.5-50.1); Hemoglobin 9.8 g/dL (12.9-16.9); Immature Granulocytes % 7.3 % (0-4); Immature Platelets 5.2 % (1.1-6.1); Lymphocytes # 0.4 K/mcL (0.6-4.6); Lymphocytes % 9.9 %; Mean Corpuscular HGB Conc 31.7 g/dL (31.6-35.5); Mean Corpuscular Hemoglobin 29.5 pg (28.0-33.3); Mean Corpuscular Volume 93.1 fL (83.0-100.0); Mean Platelet Volume 12.6 fL (9.4-12.4); Monocytes # 0.2 K/mcL (0.0-1.3); Monocytes % 5.7 %; Red Blood Count 3.32 M/mcL (4.19-5.50); Red Cell Distribution Width 13.7 % (11.5-14.5); Segmented Neutrophils % 74.7 %; White Blood Count 3.8 K/mcL (4.3-11.1)
[2019-12-31 05:16] LABS: INR 1.5; Neutrophils # 2.8 K/mcL (1.6-8.9); Platelet Count 37 K/mcL (140-400); Prothrombin Time 17.2 Seconds (9.4-12.1)
[2019-12-31 05:24] LABS: Alanine Aminotransferase 18 Units/L (7-52); Albumin 2.2 g/dL (3.5-5.7); Albumin/Globulin Ratio 0.8 (1.1-2.2); Alkaline Phosphatase 93 Units/L (34-104); Aspartate Amino Transferase 26 Units/L (13-39); BUN/Creatinine Ratio 42 (6-26); Bilirubin,Total 1.9 mg/dL (0.3-1.0); Blood Urea Nitrogen 34 mg/dL (8-23); Calcium 7.9 mg/dL (8.6-10.3); Carbon Dioxide 20 mEq/L (23-29); Chloride 109 mEq/L (98-107); Globulin 2.7 g/dL (2.4-3.5); Glucose 121 mg/dL (70-105); Osmolality,Calculated 295 (280-300); Potassium 3.9 mEq/L (3.5-5.1); Sodium 138 mEq/L (136-145); Total Protein 4.9 g/dL (6.4-8.9); eGFR For African Americans > 60 (> 60); eGFR For Non-African Americans > 60 (> 60)
[2019-12-31 05:36] LABS: Troponin I 0.03 ng/mL (< 0.04)
[2019-12-31 06:05] LABS: Platelet Estimate Decreased (Normal); Reactive Lymphocytes Present (Not Present)
[2019-12-31] MEDS ORDERED: Aminoglycoside Consult 1 EACH MC ONE (07:55)
[2019-12-31 13:54] LABS: ABG Base Excess 0 mEq/L (-2 to 3); ABG HCO3 27 mEq/L (21-27); ABG Oxygen Saturation 96 % (95-98); ABG PCO2 56 mmHg (35-45); ABG PH 7.29 pH Units (7.32-7.45); ABG PO2 94 mmHg (85-104); ABG TCO2 29 mEq/L (20-26); Blood Gas Modality AF; Blood Gas VT 500 cc
[2020-01-01] MEDS: Insulin LISPRO 300 UNITS/3 ML VIAL SQ SCH ×5 (00:39→23:57)
[2020-01-01] MEDS: Piperacillin/Tazobactam 3.375 GM in 0.9 % Sodium Chloride Mini Bag 100 ML IVPB SCH ×4 (00:39→23:58)
[2020-01-01] MEDS: Ketorolac 15 MG/ML VIAL IVP PRN ×2 (00:41→08:15)
[2020-01-01] MEDS ORDERED: Phentolamine Mesylate 5 MG VIAL IJ ONE (04:09)
[2020-01-01 08:19] LABS: Basophils % 0.6 %; Eosinophils % 2.4 %; Hematocrit 24.4 % (37.5-50.1); Hemoglobin 8.3 g/dL (12.9-16.9); Immature Granulocytes % 10.3 % (0-4); Lymphocytes # 0.5 K/mcL (0.6-4.6); Lymphocytes % 27.9 %; Mean Corpuscular Hemoglobin 29.9 pg (28.0-33.3); Mean Corpuscular Volume 87.8 fL (83.0-100.0); Mean Platelet Volume 13.2 fL (9.4-12.4); Monocytes # 0.2 K/mcL (0.0-1.3); Monocytes % 12.7 %; Neutrophils # 0.8 K/mcL (1.6-8.9); Nucleated Red Blood Cells 1.2 /100 WBC (0); Red Blood Count 2.78 M/mcL (4.19-5.50); Red Cell Distribution Width 13.8 % (11.5-14.5); Segmented Neutrophils % 46.1 %
[2020-01-01 08:20] LABS: White Blood Count 1.7 K/mcL (4.3-11.1)
[2020-01-01 08:23] LABS: INR 1.5; Prothrombin Time 16.5 Seconds (9.4-12.1)
[2020-01-01 08:25] LABS: Platelet Count 16 K/mcL (140-400)
[2020-01-01 08:39] LABS: Alanine Aminotransferase 18 Units/L (7-52); Albumin 2.1 g/dL (3.5-5.7); Albumin/Globulin Ratio 0.8 (1.1-2.2); Alkaline Phosphatase 93 Units/L (34-104); Aspartate Amino Transferase 29 Units/L (13-39); BUN/Creatinine Ratio 50 (6-26); Bilirubin,Total 1.4 mg/dL (0.3-1.0); Blood Urea Nitrogen 34 mg/dL (8-23); Calcium 8.1 mg/dL (8.6-10.3); Carbon Dioxide 21 mEq/L (23-29); Chloride 113 mEq/L (98-107); Globulin 2.5 g/dL (2.4-3.5); Glucose 129 mg/dL (70-105); Magnesium 1.8 mg/dL (1.6-2.6); Osmolality,Calculated 295 (280-300); Phosphorous 3.7 mg/dL (2.7-4.5); Potassium 4.6 mEq/L (3.5-5.1); Sodium 138 mEq/L (136-145); Total Protein 4.6 g/dL (6.4-8.9); eGFR For African Americans > 60 (> 60); eGFR For Non-African Americans > 60 (> 60)
[2020-01-01 09:02] LABS: Platelet Estimate Marked Decrease (Normal)
[2020-01-01] MEDS ORDERED: 0.9 % Sodium Chloride 250 ML ONE (10:05)
[2020-01-01] MEDS ORDERED: *HR* FentaNYL PATCH 12 MCG PATCH TD SCH (10:15)
[2020-01-01] MEDS: Pantoprazole 40 MG VIAL IVP SCH (13:55)
[2020-01-01] MEDS ORDERED: *HR* FentaNYL PATCH 25 MCG PATCH TD SCH (15:30)
[2020-01-01] MEDS: Norepinephrine 4 MG in 0.9 % Sodium Chloride 250 ML IVC SCH (16:16)
[2020-01-01] MEDS: Gabapentin 300 MG CAPSULE PO SCH (20:16)
[2020-01-02 04:55] LABS: Hemoglobin 7.6 g/dL (12.9-16.9)
[2020-01-02 04:57] LABS: Eosinophils % 3.7 %; Immature Granulocytes % 0.9 % (0-4); Lymphocytes # 0.3 K/mcL (0.6-4.6); Lymphocytes % 26.2 %; Mean Corpuscular Hemoglobin 29.3 pg (28.0-33.3); Mean Corpuscular Volume 88.8 fL (83.0-100.0); Mean Platelet Volume 11.5 fL (9.4-12.4); Monocytes # 0.2 K/mcL (0.0-1.3); Neutrophils # 0.6 K/mcL (1.6-8.9); Red Blood Count 2.59 M/mcL (4.19-5.50); Red Cell Distribution Width 13.5 % (11.5-14.5); Segmented Neutrophils % 54.2 %
[2020-01-02 04:59] LABS: White Blood Count 1.1 K/mcL (4.3-11.1)
[2020-01-02 05:00] LABS: Platelet Count 16 K/mcL (140-400)
[2020-01-02 05:16] LABS: BUN/Creatinine Ratio 48 (6-26); Blood Urea Nitrogen 26 mg/dL (8-23); Calcium 7.9 mg/dL (8.6-10.3); Carbon Dioxide 22 mEq/L (23-29); Chloride 112 mEq/L (98-107); Glucose 119 mg/dL (70-105); Osmolality,Calculated 296 (280-300); Potassium 3.7 mEq/L (3.5-5.1); Sodium 140 mEq/L (136-145); eGFR For African Americans > 60 (> 60); eGFR For Non-African Americans > 60 (> 60)
[2020-01-02] MEDS: Insulin LISPRO 300 UNITS/3 ML VIAL SQ SCH (05:32)
[2020-01-02] MEDS: Piperacillin/Tazobactam 3.375 GM in 0.9 % Sodium Chloride Mini Bag 100 ML IVPB SCH (07:48)
[2020-01-02] MEDS: Pantoprazole 40 MG VIAL IVP SCH (07:49)
[2020-01-02] MEDS: Gabapentin 300 MG CAPSULE PO SCH (07:49)
[2020-01-02] MEDS ORDERED: Sennosides 8.6 MG TABLET PO SCH (09:00)
[2020-01-02] MEDS ORDERED: Aminoglycoside Consult 1 EACH MC ONE (10:45)
[2020-01-02] MEDS ORDERED: *HR* FentaNYL (PF) 100 MCG/2 ML VIAL IVP PRN ×2 (12:08→12:21)
[2020-01-02] MEDS ORDERED: *HR* LORazepam 2 MG/ML VIAL IVP PRN (12:19)
[2020-01-02] MEDS ORDERED: Haloperidol Lactate 5 MG/ML VIAL IVP PRN (12:20)
[2020-01-02] MEDS ORDERED: Ipratropium/Albuterol Neb 3 ML IH PRN (12:21)
[2020-01-02] MEDS ORDERED: Gabapentin 300 MG CAPSULE PO SCH (15:00)
[2020-01-03 00:24] VITALS: BP 94/56
[2020-01-04] MEDS ORDERED: *HR* FentaNYL PATCH 25 MCG PATCH TD SCH (15:30)
== END 2020-01-03 10:46 | disposition hospice, inpatient (51) | DRG 871 ==
LOC: EMEROOARM 15:05 → 2ANU 15:05 → ICNU 19:45 → 2ANU 01-02 14:14
PROVIDERS: ADMIT Internal Medicine; ATTEND Internal Medicine

== ENCOUNTER 2020-01-03 09:53 | Inpatient (IN) ==
[2020-01-03] MEDS ORDERED: Bisacodyl 10 MG RECTAL SUPPOSITORY RC PRN (09:55)
[2020-01-03] MEDS ORDERED: *HR* FentaNYL PATCH 50 MCG PATCH TD SCH (10:00)
[2020-01-03] MEDS ORDERED: Ipratropium/Albuterol Neb 3 ML IH PRN (10:03)
[2020-01-03] MEDS ORDERED: *HR* FentaNYL (PF) 100 MCG/2 ML VIAL IVP PRN (10:06)
[2020-01-03] MEDS ORDERED: Haloperidol Lactate 5 MG/ML VIAL IVP PRN (10:10)
[2020-01-03] MEDS: Haloperidol Oral Conc 10 MG/5 ML UDC PO SCH ×3 (11:33→22:56)
[2020-01-04] MEDS: Haloperidol Oral Conc 10 MG/5 ML UDC PO SCH ×4 (04:53→23:20)
[2020-01-04] MEDS: Atropine Sulfate 1% 40 DROP/2 ML BOTTLE SL PRN ×6 (05:47→23:22)
[2020-01-04] MEDS ORDERED: Scopolamine Patch 1.5 MG PATCH.TD72 TD SCH (10:00)
[2020-01-04] MEDS: *HR* LORazepam 2 MG/ML VIAL IVP PRN (17:46)
[2020-01-05] MEDS: Haloperidol Oral Conc 10 MG/5 ML UDC PO SCH ×4 (04:43→22:40)
[2020-01-05] MEDS: Atropine Sulfate 1% 40 DROP/2 ML BOTTLE SL PRN (04:54)
[2020-01-05] MEDS: Acetaminophen 650 MG RECTAL SUPP RC PRN ×2 (06:16→13:42)
[2020-01-05] MEDS: *HR* LORazepam 2 MG/ML VIAL IVP PRN ×4 (09:22→20:25)
[2020-01-05] MEDS ORDERED: *HR* FentaNYL PATCH 75 MCG PATCH TD SCH (13:31)
[2020-01-06] MEDS: Acetaminophen 650 MG RECTAL SUPP RC PRN (00:05)
[2020-01-06] MEDS: Haloperidol Oral Conc 10 MG/5 ML UDC PO SCH ×2 (05:01→09:26)
[2020-01-06 10:41] VITALS: BP 129/74
[2020-01-06] MEDS: Atropine Sulfate 1% 40 DROP/2 ML BOTTLE SL PRN (11:07)
[2020-01-06] MEDS: *HR* LORazepam 2 MG/ML VIAL IVP PRN (13:19)
== END 2020-01-06 13:30 | disposition expired ==
LOC: 2ANU 10:52
PROVIDERS: ADMIT Internal Medicine Hospice and Palliative Medicine; ATTEND Internal Medicine Hospice and Palliative Medicine